=== PATIENT | female | born 1955 | race Native Hawaiian/Other Pacific Islander ===

== ENCOUNTER 2017-03-08 07:22 | Emergency (ER) | payer BC ==
[~2017-03-08] VITALS: Ht 170.2 cm; Wt 61.2 kg
[~2017-03-08 07:22] MED LIST: ZANTAC300 MG PO
[2017-03-08 07:30] VITALS: TEMP 98.3
[2017-03-08] MEDS ORDERED: MOBIC15 MG PO (07:50)
[2017-03-08 08:15] LABS: PLATELET COUNT 233 K/uL (152-353)
[2017-03-08 08:21] LABS: POTASSIUM 3.7 mmol/L (3.6-5.2)
[2017-03-08 08:35] VITALS: BP 156/75
== END 2017-03-08 08:46 | disposition home or self-care (01) ==
LOC: ED 07:22
PROVIDERS: Specialist
DX: R25.2 Cramp and spasm (principal); M62.838 Other muscle spasm
CPT/HCPCS: 36415; 80053; 83735; 85027; 99283

== ENCOUNTER 2017-05-02 17:11 | Emergency (ER) | payer BC ==
[~2017-05-02] VITALS: Ht 170.2 cm; Wt 61.2 kg
[~2017-05-02 17:11] MED LIST changes: +MOBIC15 MG PO
[2017-05-02] MEDS ORDERED: DIAZ5TAB20 PO (17:26)
[2017-05-02] MEDS ORDERED: ASPIR-8181 MG OR (17:26)
[2017-05-02] MEDS ORDERED: LISI5TAB10 PO (17:26)
[2017-05-02 17:52] LABS: PLATELET COUNT 166 K/uL (152-353)
[2017-05-02 17:53] LABS: POTASSIUM 4.4 mmol/L (3.6-5.2)
[2017-05-02 22:10] VITALS: BP 126/76; TEMP 98.2
== END 2017-05-02 22:08 | disposition home or self-care (01) ==
LOC: ED 17:11
DX: K81.9 Cholecystitis, unspecified (principal); R10.9 Unspecified abdominal pain
CPT/HCPCS: 36415; 80053; 82150; 83690; 85027; 99283

== ENCOUNTER 2019-03-20 14:28 | Outpatient (CLI) | payer OTHER ==
[~2019-03-20 14:28] MED LIST changes: +ASPIR-8181 MG OR; +DIAZ5TAB20 PO; +LISI5TAB10 PO
== END 2019-03-20 23:59 | disposition home or self-care (01) ==
LOC: MAMMO 14:28
DX: Z12.31 Encounter for screening mammogram for malignant neoplasm of breast (principal)

== ENCOUNTER 2019-05-21 10:34 | Day surgery (SDC) | payer OTHER ==
[2019-05-21 11:23] LABS: PLATELET COUNT 256 K/uL (152-353)
[2019-05-21 11:42] LABS: POTASSIUM 4.1 mmol/L (3.6-5.2)
== END 2019-05-21 13:35 | disposition home or self-care (01) ==
LOC: OR 10:34
PROVIDERS: Internal Medicine Gastroenterology
PROC: 0DB68ZZ Excision of Stomach, Via Natural or Artificial Opening Endoscopic (ICD-10-PCS; principal; 2019-05-21)
PROC: 0DB88ZZ Excision of Small Intestine, Via Natural or Artificial Opening Endoscopic (ICD-10-PCS; 2019-05-21)
DX: K21.0 Gastro-esophageal reflux disease with esophagitis (principal); K29.50 Unspecified chronic gastritis without bleeding; R10.13 Epigastric pain; R14.3 Flatulence; R14.0 Abdominal distension (gaseous); K25.9 Gastric ulcer, unspecified as acute or chronic, without hemorrhage or perforation
CPT/HCPCS: 80053; 85027; J1100; J2001; J2405; J2704

== ENCOUNTER 2019-12-21 01:12 | Emergency (ER) | payer OTHER ==
[~2019-12-21] VITALS: Ht 170.2 cm; Wt 70.3 kg
[2019-12-21 02:18] VITALS: BP 142/72; TEMP 98
== END 2019-12-21 02:19 | disposition home or self-care (01) ==
LOC: ED 01:12
DX: F41.0 Panic disorder [episodic paroxysmal anxiety] (principal)
CPT/HCPCS: 96372; 99282; J2060

== ENCOUNTER 2020-12-17 10:40 | Outpatient (CLI) | payer OTHER | END 2020-12-17 22:40 | disposition home or self-care (01) | LOC: RAD 10:40 | PROVIDERS: ATTEND Registered Nurse | DX: M54.42 Lumbago with sciatica, left side (principal) ==

== ENCOUNTER 2021-10-17 13:00 | Emergency (ER) | payer OTHER ==
[~2021-10-17] VITALS: Ht 170.2 cm; Wt 70.3 kg
[2021-10-17 13:05] VITALS: BP 145/83; TEMP 97.7
== END 2021-10-17 15:04 | disposition home or self-care (01) ==
LOC: ED 13:00
DX: M51.36 Other intervertebral disc degeneration, lumbar region (principal); S70.02XA Contusion of left hip, initial encounter; W07.XXXA Fall from chair, initial encounter; Y92.89 Other specified places as the place of occurrence of the external cause
CPT/HCPCS: 96372; 99283; J2270; J2550

== ENCOUNTER 2022-05-08 09:41 | Outpatient (CLI) | payer OTHER | END 2022-05-08 20:40 | disposition home or self-care (01) | LOC: MAMMO 09:41 | PROVIDERS: ATTEND Nurse Practitioner Family | DX: Z12.31 Encounter for screening mammogram for malignant neoplasm of breast (principal) ==

== ENCOUNTER 2022-07-04 08:02 | Outpatient (CLI) | payer OTHER | END 2022-07-04 20:56 | disposition home or self-care (01) | LOC: MAMMO 08:02 | PROVIDERS: ATTEND Nurse Practitioner Family | DX: R92.8 Other abnormal and inconclusive findings on diagnostic imaging of breast (principal) ==

== ENCOUNTER 2022-08-22 12:53 | Outpatient (CLI) | payer OTHER | END 2022-08-22 19:18 | disposition home or self-care (01) | LOC: MRI 12:53 | PROVIDERS: ATTEND Orthopaedic Surgery | DX: M54.59 Other low back pain (principal); M54.16 Radiculopathy, lumbar region; M51.37 Other intervertebral disc degeneration, lumbosacral region; M54.32 Sciatica, left side ==

== ENCOUNTER 2023-05-15 09:21 | Outpatient (CLI) | payer OTHER | END 2023-05-15 18:52 | disposition home or self-care (01) | LOC: US 09:21 | PROVIDERS: ATTEND Nurse Practitioner Family | DX: R10.84 Generalized abdominal pain (principal) ==